=== PATIENT | male | born 1975 ===

== ENCOUNTER 2017-08-27 18:45 | Emergency (ER) | payer OTHER ==
--- NOTE | 2017-08-27 19:01 | EDM.PDOC ---
ED HPI GENERAL MEDICAL PROBLEM - General Chief Complaint: Neuro Symptoms/Deficits Stated Complaint: NUMBNESS ALL OVER FACE Time Seen by Provider: 08/27/17 18:50 Source of Information: Reports: Patient History Limitations: Reports: No Limitations - History of Present Illness INITIAL COMMENTS - FREE TEXT/NARRATIVE: The patient states that he developed a right-sided headache and right neck pain this past 08/25/2017. It is sharp in character. He has not identified any modifiers. No associated nausea or emesis. He is not sure if he has photophobia or not. No phonophobia. No visual changes. The patient then developed bilateral facial numbness yesterday, then he discovered that the right side of his face was drooping when he woke up around 04:30 this morning. The weakness involves his forehead. 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 He cannot, for example, completely close his eye, and sometimes wears an eye patch to prevent it from getting too dry. The patient feels that the left side of his face is weaker than usual today, as well. The patient is from [place], but works in this vicinity. He does not have a PCP. - Related Data Allergies Allergy/AdvReac Type Severity Reaction Status Date / Time No Known Allergies Allergy Verified 08/27/17 18:56 Home Meds: Home Meds predniSONE [Prednisone] 80 mg PO QPM #24 tablet 08/27/17 [Rx] valACYclovir [Valtrex] 1,000 mg PO Q8H #20 tablet 08/27/17 [Rx] Past Medical History Neurological History: Reports: Other (See Below) (Left Longoria palsy 2014 - improved, but never resolved) Endocrine/Metabolic History: Reports: Obesity/BMI 30+ Social & Family History - Tobacco Use Smoking Status *Q: Former Smoker - Alcohol Use Alcohol Use History: Yes Alcohol Use Frequency: Socially (occasionally to excess) - Recreational Drug Use Recreational Drug Use: No - Living Situation & Occupation Living situation: Reports: , with Spouse, with Family (3 kids) 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 ED EXAM, NEURO - Physical Exam Exam: See Below Exam Limited By: No Limitations General Appearance: Alert, WD/WN, No Apparent Distress Eye Exam: Bilateral Eye: EOMI, Normal Inspection, PERRL Ears: Normal External Exam, Normal Canal, Hearing Grossly Normal, Normal TMs Nose: Normal Inspection, Normal Mucosa, No Blood Throat/Mouth: Normal Inspection, Normal Lips, Normal Teeth, Normal Gums, Normal Oropharynx, Normal Voice, No Airway Compromise, Other (Tongue stud) Head Exam: Atraumatic, Normocephalic Neck: Normal Inspection, Supple, Non-Tender, Full Range of Motion Respiratory/Chest: No Respiratory Distress, Lungs Clear, Normal Breath Sounds, No Accessory Muscle Use Cardiovascular: Normal Peripheral Pulses, Regular Rate, Rhythm, No Edema, No Gallop, No JVD, No Murmur, No Rub GI/Abdominal: Normal Bowel Sounds, Soft, Non-Tender, No Organomegaly, No Distention, No Abnormal Bruit, No Mass, Other (Obese) (Male) Exam: Deferred Rectal (Males) Exam: Deferred Neurological: Alert, Normal Dorsiflexion, Normal Plantar Flexion, Oriented x 3, Other (Complete right facial palsy, including the forehead (House-Brackmann V- ). Left facial weakness, but not complete palsy, that also involves forehead ( House-Brackmann III-IV). The patient is unable to close his right eye, and has weak closure of his left eye. No decreased sensation to either side of the face. The remaining neurologic exam is entirely normal.) Back Exam: Normal Inspection, Full Range of Motion, NT Extremities: Normal Inspection, Normal Range of Motion, No Pedal Edema, Normal Capillary Refill Psychiatric: Normal Affect Skin Exam: Warm, Dry, Intact, Normal Color, No Rash EKG INTERPRETATION EKG Date: 08/27/17 Time: 19:34 Rhythm: NSR Rate (Beats/Min): 87 [place]: Normal P-Wave: Present QRS: Normal ST-T: Normal QT: Normal Comparison: NA - No Prior EKG Course - Vital Signs Last Recorded V/S: Last Vital Signs Temp 37.1 C 08/27/17 18:50 Pulse 94 08/27/17 18:50 Resp 17 08/27/17 18:50 BP 160/92 H 08/27/17 18:50 Pulse Ox 97 08/27/17 18:50 - Orders/Labs/Meds Orders: Active Orders 24 hr Category Date Time Status Accu Check [Blood Glucose Check, Bedside] [RC] ONETIME Care 08/27/17 19:02 Active EKG Documentation Completion [RC] STAT Care 08/27/17 19:02 Active Labs: Laboratory Tests 08/27/17 08/27/17 08/27/17 Range/Units 18:52 18:56 18:56 WBC 10.10 H (4.23-9.07) K/mm3 RBC 4.81 (4.63-6.08) M/mm3 Hgb 14.6 (13.7-17.5) gm/L Hct 44.3 (40.1-51.0) % MCV 92.1 (79.0-92.2) fl MCH 30.4 (25.7-32.2) pg MCHC 33.0 (32.2-35.5) g/dl RDW Std Deviation 45.4 H (35.1-43.9) fL Plt Count 282 (163-337) K/mm3 MPV 10.4 (9.4-12.3) fl Neutrophils % (Manual) 66 H (40-60) % Band Neutrophils % 0 (0-10) % Lymphocytes % (Manual) 27 (20-40) % Atypical Lymphs % 0 % Monocytes % (Manual) 3 (2-10) % Eosinophils % (Manual) 3 (0.8-7.0) % Basophils % (Manual) 1 (0.2-1.2) Platelet Estimate Adequate Plt Morphology Comment Normal RBC Morph Comment Normal PT (9.5-12.1) SECONDS INR APTT (24-31) SECONDS Sodium 138 (136-145) mEq/L Potassium 3.9 (3.5-5.1) mEq/L Chloride 102 (98-107) mEq/L Carbon Dioxide 24 (21-32) mEq/L Anion Gap 15.9 H (5-15) BUN 20 H (7-18) mg/dL Creatinine 1.2 (0.7-1.3) mg/dL Est Cr Clr Drug Dosing 86.28 mL/min Estimated GFR (MDRD) > 60 (>60) mL/min BUN/Creatinine Ratio 16.7 (14-18) Glucose 179 H (74-106) mg/dL POC Glucose 177 H (70-105) mg/dL Calcium 8.6 (8.5-10.1) mg/dL Total Bilirubin 0.3 (0.2-1.0) mg/dL AST 25 (15-37) U/L ALT 48 (16-63) U/L Alkaline Phosphatase 125 H (46-116) U/L Total Protein 7.7 (6.4-8.2) g/dl Albumin 3.7 (3.4-5.0) g/dl Globulin 4.0 gm/dL Albumin/Globulin Ratio 0.9 L (1-2) //18 Range/Units 18:56 WBC (4.23-9.07) K/mm3 RBC (4.63-6.08) M/mm3 Hgb (13.7-17.5) gm/L Hct (40.1-51.0) % MCV (79.0-92.2) fl MCH (25.7-32.2) pg MCHC (32.2-35.5) g/dl RDW Std Deviation (35.1-43.9) fL Plt Count (163-337) K/mm3 MPV (9.4-12.3) fl Neutrophils % (Manual) (40-60) % Band Neutrophils % (0-10) % Lymphocytes % (Manual) (20-40) % Atypical Lymphs % % Monocytes % (Manual) (2-10) % Eosinophils % (Manual) (0.8-7.0) % Basophils % (Manual) (0.2-1.2) Platelet Estimate Plt Morphology Comment RBC Morph Comment PT 9.9 (9.5-12.1) SECONDS INR < 0.93 APTT 28 (24-31) SECONDS Sodium (136-145) mEq/L Potassium (3.5-5.1) mEq/L Chloride (98-107) mEq/L Carbon Dioxide (21-32) mEq/L Anion Gap (5-15) BUN (7-18) mg/dL Creatinine (0.7-1.3) mg/dL Est Cr Clr Drug Dosing mL/min Estimated GFR (MDRD) (>60) mL/min BUN/Creatinine Ratio (14-18) Glucose (74-106) mg/dL POC Glucose (70-105) mg/dL Calcium (8.5-10.1) mg/dL Total Bilirubin (0.2-1.0) mg/dL AST (15-37) U/L ALT (16-63) U/L Alkaline Phosphatase (46-116) U/L Total Protein (6.4-8.2) g/dl Albumin (3.4-5.0) g/dl Globulin gm/dL Albumin/Globulin Ratio (1-2) Meds: Medications Discontinued Medications Generic Name Dose Route Start Last Admin Trade Name Filipeq PRN Reason Stop Dose Admin Prednisone 80 mg 08/27/17 19:48 08/27/17 19:57 Prednisone PO 08/27/17 19:49 80 mg ONETIME STA Administration Valacyclovir HCl 1,000 mg 08/27/17 19:49 08/27/17 19:55 Valtrex PO 08/27/17 19:50 Not Given ONETIME STA Valacyclovir HCl 1,000 mg 08/27/17 19:54 08/27/17 19:58 Valtrex PO 08/27/17 19:55 1,000 mg ONETIME ONE Administration Valacyclovir HCl Confirm 08/27/17 19:54 08/27/17 19:58 Valtrex Administered 08/27/17 19:55 Not Given Dose 1,000 mg .ROUTE .ST-MED ONE - Re-Assessments/Exams Free Text/Narrative Re-Assessment/Exam: 08/27/17 19:39 CT of the head without contrast is read by Dr. Stovall as: 1. Nothing acute is identified on noncontrast head CT exam. 08/27/17 19:44 Clinically, the patient is suffering from new right Longoria palsy and (according to the patient) worsened left Longoria palsy. His House-Brackmann severity is V- on the right, III-IV on the left. Current guidelines for this degree of severity recommend bilateral eye protective measures, oral steroids (prednisone 80 mg daily x 7 days), and oral antivirals (valacyclovir 1 g Q8 hrs x 7 days). 08/27/17 20:39 The patient's blood glucose returned elevated at 179. The patient has either prediabetes or diabetes - either way, we would expect that his blood glucoses will rise substantially while he is on oral prednisone for the next week. I would therefore like the patient to follow-up with Dr. Ponce or one of her colleagues tomorrow, to check a Hgb A1c and provide treatment for the expected worsened hyperglycemia. 4I protection, current guidelines recommend either artificial tears or artificial tears gel during the day, along with safety glasses, then Soothe ointment (mineral oil + white petrolatum) at night. I would like the patient follow-up with an [employer] Line Photo Inspector in [place] this week, as one treatment option includes placing gold into the eyelids so that they can be closed by weight. A note for the patient's work for tomorrow will be provided. Departure - Departure Time of Disposition: 19:45 Disposition: Home, Self-Care 01 Condition: Fair Clinical Impression: Left-sided Lnogoria's palsy, Right-sided Longoria's palsy, Hyperglycemia - Discharge Information Referrals: PCP,Not In Area [Primary Care Provider] - Keira Ponce MD [Physician] - Nahum Munson MD [Resident] - Forms: ED Department Discharge Additional Instructions: You were seen in the emergency room for facial weakness, worse on the right than the left. Workup in the ER included blood work, a CT scan of your head, and an ECG. Your entire workup was unremarkable, with the exception that your blood sugar was found to be elevated at 179. The cause of your facial weakness is Longoria palsy, not a stroke. You have been started on the steroid prednisone. A prescription for prednisone has been sent to the [facility], located in [facility]. Take 4 tablets (80 mg) every evening, starting tomorrow evening, 08/28/2017 , as prescribed. Finish the entire prescription. You have been started on the antiviral medicine Valtrex (valacyclovir). A prescription for valacyclovir has also been sent to the [facility]. Take one tablet every 8 hours, starting at 04:00 this coming morning, 08/28/2017, as prescribed. Finish the entire prescription. Your elevated blood sugar shows that you have either prediabetes or diabetes. Your blood sugars will rise substantially while you are on prednisone. It is imperative that you follow-up with Dr. Ponce or one of her colleagues tomorrow, 08/28/2017, for further evaluation and treatment. Failure to do so can lead to serious health consequences. Apply artificial tears or artificial tears gel in both of your eyes during the day, and wear safety glasses. At night, we recommend that you apply Soothe ointment to BOTH eyes, to prevent them from getting dry while you sleep. Soothe appointment is available [id number]. Ask the pharmacist at [facility] for help finding it. Follow-up with the Sewer Line Photo Inspector Dr. Nahum Munson, at the [facility], this week. If any other problems, please do not hesitate to return to the ER. - My Orders Last 24 Hours: My Active Orders 08/27/17 19:02 Accu Check [Blood Glucose Check, Bedside] [RC] ONETIME EKG Documentation Completion [RC] STAT - Assessment/Plan Last 24 Hours: My Active Orders 08/27/17 19:02 Accu Check [Blood Glucose Check, Bedside] [RC] ONETIME EKG Documentation Completion [RC] STAT
--- NOTE | 2017-08-27 19:28 | CT ---
Head CT Technique: Multiple axial sections through the brain were obtained. Intravenous contrast was not utilized. Comparison: No prior intracranial imaging. Findings: Ventricles along with basal cisterns and sulci over the convexities are within normal limits for the patient's age. No abnormal parenchymal densities are seen. No evidence of intracranial hemorrhage. No midline shift or mass effect is seen. Bone window settings were reviewed which shows the visualized sinuses to appear clear. No acute calvarial abnormality is seen. Impression: 1. Nothing acute is identified on noncontrast head CT exam. Diagnostic code #1
[2017-08-27] MEDS ORDERED: predniSONE 20 MG Tab PO STA (19:48)
[2017-08-27] MEDS ORDERED: valACYclovir 1,000 MG Tab PO STA (19:49)
[2017-08-27] MEDS ORDERED: valACYclovir 500 MG Tab PO ONE (19:54)
[2017-08-27] MEDS ORDERED: valACYclovir 500 MG Tab ONE (19:54)
== END 2017-08-27 21:19 | disposition home or self-care (01) ==
LOC: JD.ED 18:45
DX: G51.0 Bell's palsy (principal); R73.9 Hyperglycemia, unspecified; Z87.891 Personal history of nicotine dependence
CPT/HCPCS: 36415; 70450; 80053; 82962; 85007; 85027; 85610; 85730; 93005; 99285; A9270; 99283